=== PATIENT | female | born 1975 | race Caucasian/White ===

== ENCOUNTER 2024-09-28 05:55 | Day surgery (SDC) | payer BC ==
[2024-09-09 11:15] VITALS: BMI 26.1
[2024-09-28] MEDS ORDERED: Bupivacaine HCl 0.5%/Epinephrine 1:200,000/PF 30 ml Vial ONE (06:14)
[2024-09-28] MEDS ORDERED: Fentanyl 250 MCG/5 ML VIAL ONE (07:01)
[2024-09-28] MEDS ORDERED: Midazolam HCl 2 mg/2 ml Vial ONE (07:01)
[2024-09-28] MEDS ORDERED: PROPOFOL 20 ML ONE (07:01)
[2024-09-28] MEDS ORDERED: Lidocaine 2% PF 5 ML VIAL ONE ×2 (07:02→08:08)
[2024-09-28] MEDS ORDERED: CEFAZOLIN 2 GM VIAL ONE (07:10)
[2024-09-28] MEDS ORDERED: Bupivacaine/Epinephrine 0.25% 30 ML VIAL ONE (07:29)
[2024-09-28] MEDS ORDERED: Dexamethasone 4 mg/ml Vial ONE (07:31)
[2024-09-28] MEDS ORDERED: diphenhydrAMINE 50 MG/ML VIAL ONE (07:31)
[2024-09-28] MEDS ORDERED: Ondansetron PF 4 MG/2 ML Vial ONE (07:31)
[2024-09-28] MEDS ORDERED: Glycopyrrolate 0.2 MG/ML 5 ML SYRINGE ONE (07:33)
== END 2024-09-28 09:15 | disposition home or self-care (01) ==
LOC: CSHSDC 05:55
PROVIDERS: ATTEND Surgery
PROC: 0JH60WZ Insertion of Totally Implantable Vascular Access Device into Chest Subcutaneous Tissue and Fascia, Open Approach (ICD-10-PCS; principal; 2024-09-28)
DX: C50.911 Malignant neoplasm of unspecified site of right female breast (principal); Z88.5 Allergy status to narcotic agent; Z79.899 Other long term (current) drug therapy
CPT/HCPCS: 71045; A6258; C1788; J1100; J1200; J1642; J2250; J2405; J2704; J3010